=== PATIENT | male | born 1990 | race Caucasian/White ===

== ENCOUNTER 2016-09-13 10:31 | Emergency (ER) | payer SELFPAY ==
[2016-09-13 10:42] VITALS: TEMP 98; BMI 26.6
--- NOTE | 2016-09-13 11:51 | PDOC ---
History of Present Illness - General Chief Complaint: Pain Stated Complaint: ABD PAIN Time Seen by Provider: 09/13/16 10:53 - History of Present Illness Initial Comments: 09/13/16 11:46 CHIEF COMPLAINT: abdominal pain x 4 days HISTORY OF PRESENT ILLNESS: 25 yo M with no PMH presents to fast track with upper abdominal pain x 4 days. Patient states "it feels like a cramping" pain, and it comes and goes. Patient states he has also had intermittent diarrhea on and off x 4 days. Patient reports "some nausea" but denies any vomiting. Patient denies constipation or rectal bleeding. PAST MEDICAL HISTORY: Denies past medical history FAMILY HISTORY: Denies SOCIAL HISTORY: Denies tobacco, alcohol, illicit drug use. SURGICAL HISTORY: Denies ALLERGIES: NKDA REVIEW OF SYSTEMS General/Constitutional: Denies fever or chills. Denies weakness. HEENT: Denies change in vision. Denies ear pain or discharge. Denies sore throat. Cardiovascular: Denies chest pain or shortness of breath. Respiratory: Denies cough, wheezing, or hemoptysis. Gastrointestinal: "Sometimes diarrhea, sometimes nausea." Denies vomiting. Genitourinary: Denies dysuria, frequency, or change in urination. PHYSICAL EXAM General Appearance: Well-appearing, appropriately dressed. HEENT: EOMI, PERRLA. No conjunctival pallor. No photophobia, scleral icterus. Respiratory/Chest: Lungs CTAB. Cardiovascular: RRR. S1, S2. Gastrointestinal/Abdominal: Generalized abdominal tenderness. Abdomen soft, non -distended. No organomegaly, pulsatile mass, guarding, hernia, hepatomegaly, splenomegaly. Musculoskeletal/Extremities: Normal inspection. FROM of all extremities, normal capillary refill. Pelvis Stable. No CVA tenderness. No tenderness to extremities, pedal edema, swelling, erythema or deformity. Integumentary: Appropriate color, dry, warm. 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 Fully oriented, alert. Appropriate mood/affect. Motor strength 5/5. No appreciable EOM palsy, facial droop or sensory deficit. Past History - Past Medical History Allergies/Adverse Reactions: Allergies Allergy/AdvReac Type Severity Reaction Status Date / Time No Known Allergies Allergy Verified 09/13/16 10:42 Home Medications: Ambulatory Orders Loperamide HCl [Loperamide] 2 mg PO Q4H PRN #20 capsule 09/13/16 Other medical history: denies - Psycho/Social/Smoking Cessation Hx Suicidal Ideation: No Smoking History: Never smoked Information on smoking cessation initiated: No Hx Alcohol Use: No Drug/Substance Use Hx: No Substance Use Type: None *Physical Exam - Vital Signs Last Vital Signs Temp Pulse Resp BP Pulse Ox 98 F 60 18 128/55 98 09/13/16 10:40 09/13/16 10:40 09/13/16 10:40 09/13/16 10:40 09/13/16 10:40 ED Treatment Course - LABORATORY CBC & Chemistry Diagram: 09/13/16 12:30 09/13/16 13:00 Medical Decision Making - Medical Decision Making 09/13/16 13:48 25 yo M with no PMH presents to fast track with upper abdominal pain & diarrhea x 4 days. -CBC, CMP, lipase -UA, Ucx -Pepcid, Protonix Labs unremarkable. Will discharge home with loperamide rx. Advised patient to take medications as prescribed and f/u with PCP this week. Advised patient of signs and symptoms for return to ER; patient verbalized understanding and agrees to plan. *DC/Admit/Observation/Transfer Diagnosis at time of Disposition: Diarrhea Qualifiers: Diarrhea type: unspecified type Qualified Code(s): R19.7 - Diarrhea, unspecified Abdominal pain Qualifiers: Abdominal location: generalized Qualified Code(s): R10.84 - Generalized abdominal pain - Discharge Dispostion Disposition: HOME Condition at time of disposition: Stable Admit: No - Prescriptions Prescriptions: Loperamide HCl [Loperamide] 2 mg PO Q4H PRN #20 capsule PRN Reason: Diarrhea - Referrals Referrals: Walter Farrsi MD [Staff Physician] - - Patient Instructions Printed Discharge Instructions: DI for Diarrhea and Traveler's Diarrhea -- Adult Additional Instructions: Please take medication as prescribed. Follow up with your primary care doctor this week if symptoms persist. If you develop fever, vomiting, rectal bleeding , or any new or worsening symptoms, please return to the ER. Por favor, tome la medicacin segn lo prescrito. Siga con ferguson mdico de atenci n primaria esta semana si los sntomas persisten. Si usted desarrolla fiebre, v mitos, sangrado rectal o cualquier sntoma nuevo o que empeora, por favor regrese a la sherlyn de emergencias.
[2016-09-13] MEDS ORDERED: PANTOPRAZOLE SODIUM 40 MG in SODIUM CHLORIDE 100 ML IVPB ONE (12:20)
[2016-09-13] MEDS ORDERED: FAMOTIDINE 20 MG/50 ML IVPB 50 ML IVPB ONE ×2 (12:20→12:32)
[2016-09-13] MEDS ORDERED: PANTOPRAZOLE SODIUM 100 ML IVPB ONE (12:32)
[2016-09-13 12:41] LABS: BASOPHIL 0.3 % (0-2.0); EOSINOPHIL 2.8 % (0-4.5); MCH 31.6 pg (25.7-33.7); MCHC 34.7 g/dl (32.0-35.9); MEAN CELL VOLUME 91.3 fl (80-96); MEAN PLT VOLUME 8.3 fl (7.5-11.1); NEUTROPHILS 64.6 % (42.8-82.8); PLATELET COUNT 212 K/MM3 (134-434); RDW 12.7 % (11.9-15.9); WHITE BLOOD COUNT 6.3 K/mm3 (4.0-10.0)
[2016-09-13 12:53] LABS: URINE APPEARANCE CLEAR; URINE BILIRUBIN NEGATIVE (NEGATIVE); URINE BLOOD NEGATIVE (NEGATIVE); URINE COLOR YELLOW; URINE GLUCOSE (UA) NEGATIVE (NEGATIVE); URINE KETONE NEGATIVE (NEGATIVE); URINE LEUK ESTERASE NEGATIVE (NEGATIVE); URINE NITRITE NEGATIVE (NEGATIVE); URINE PROTEIN NEGATIVE (NEGATIVE); URINE UROBILINOGEN NEGATIVE mg/dL (0.2-1.0)
[2016-09-13 13:21] LABS: ALBUMIN 3.7 g/dl (3.4-5.0); ANION GAP 7 (8-16); BILIRUBIN,TOTAL 0.4 mg/dL (0.2-1.0); CALCIUM 8.2 mg/dL (8.5-10.1); CO2 26 mmol/L (21-32); CREATININE 0.8 mg/dL (0.7-1.3); GLUCOSE,RANDOM 88 mg/dL (74-106); SGOT/AST 22 U/L (15-37); SGPT/ALT 32 U/L (12-78); TOT PROT 6.5 g/dl (6.4-8.2)
[2016-09-13 13:24] LABS: ALK PHOS 67 U/L (45-117)
--- NOTE | 2016-09-13 14:37 | PDOC ---
*Physical Exam - Vital Signs Last Vital Signs Temp Pulse Resp BP Pulse Ox 98 F 60 18 128/55 98 09/13/16 10:40 09/13/16 10:40 09/13/16 10:40 09/13/16 10:40 09/13/16 10:40 - Physical Exam General Appearance: Yes: Nourished, Appropriately Dressed Neck: positive: Trachea midline Respiratory/Chest: positive: Lungs Clear, Normal Breath Sounds. negative: Respiratory Distress Cardiovascular: positive: Regular Rhythm, Regular Rate, S1, S2. negative: Edema , JVD Gastrointestinal/Abdominal: positive: Normal Bowel Sounds, Flat, Soft. negative : Tender Extremity: positive: Normal Inspection Integumentary: positive: Normal Color, Warm Neurologic: positive: Fully Oriented, Alert, Normal Mood/Affect ED Treatment Course - LABORATORY CBC & Chemistry Diagram: 09/13/16 12:30 09/13/16 13:00 - ADDITIONAL ORDERS Additional order review: Laboratory Results 09/13/16 09/13/16 13:00 12:37 Sodium 140 Potassium 3.8 Chloride 107 Carbon Dioxide 26 Anion Gap 7 L BUN 10 Creatinine 0.8 Creat Clearance w eGFR > 60 Random Glucose 88 Calcium 8.2 L Total Bilirubin 0.4 AST 22 ALT 32 Alkaline Phosphatase 67 Total Protein 6.5 Albumin 3.7 Lipase 127 Urine Color Yellow Urine Appearance Clear Urine pH 5.0 Urine Protein Negative Urine Glucose (UA) Negative Urine Ketones Negative Urine Blood Negative Urine Nitrite Negative Urine Bilirubin Negative Urine Urobilinogen Negative Ur Leukocyte Esterase Negative 09/13/16 12:30 RBC 4.58 MCV 91.3 MCHC 34.7 RDW 12.7 MPV 8.3 Neutrophils % 64.6 Lymphocytes % 23.3 Monocytes % 9.0 Eosinophils % 2.8 Basophils % 0.3 - Medications Given in the ED: ED Medications Discontinued Medications Generic Name Dose Route Start Last Admin Trade Name Freq PRN Reason Stop Dose Admin Pantoprazole Sodium 40 mg/ 100 mls @ 200 mls/hr 09/13/16 12:20 09/13/16 12:31 Sodium Chloride IVPB 09/13/16 12:49 200 mls/hr ONCE ONE Administration Famotidine/Sodium Chloride 50 mls @ 100 mls/hr 09/13/16 12:20 09/13/16 12:30 Pepcid 20 Mg Premixed Ivpb - IVPB 09/13/16 12:49 100 mls/hr ONCE ONE Administration Medical Decision Making - Medical Decision Making 09/13/16 14:35 25 yo M with no pmhx here wtih c/o epigastric pain. no n/v no diarrhea, no f/c no recent travel. no mod factors. 09/13/16 14:42 focused ED ultrasound RUQ,. indication: epigastric pain finding: pt gallbladder scanned in two planes in b mode with curvilinear probe. no stones no wall edema. no wall thickening. no pericholecystic fluid, negative sonographic murphys wall 1.2mm CBD 1mm impression: normal gallbladder cirilli plan : pt improved wtih antacid, will dc with outpt GI followup. *DC/Admit/Observation/Transfer Diagnosis at time of Disposition: Diarrhea Qualifiers: Diarrhea type: unspecified type Qualified Code(s): R19.7 - Diarrhea, unspecified Abdominal pain Qualifiers: Abdominal location: generalized Qualified Code(s): R10.84 - Generalized abdominal pain - Discharge Dispostion Disposition: HOME Condition at time of disposition: Stable - Prescriptions Prescriptions: Loperamide HCl [Loperamide] 2 mg PO Q4H PRN #20 capsule PRN Reason: Diarrhea - Referrals Referrals: Walter Farris MD [Staff Physician] - - Patient Instructions Printed Discharge Instructions: DI for Diarrhea and Traveler's Diarrhea -- Adult Additional Instructions: Please take medication as prescribed. Follow up with your primary care doctor this week if symptoms persist. If you develop fever, vomiting, rectal bleeding , or any new or worsening symptoms, please return to the ER. Por favor, tome la medicacin segn lo prescrito. Siga con ferguson mdico de atenci n primaria esta semana si los sntomas persisten. Si usted desarrolla fiebre, v mitos, sangrado rectal o cualquier sntoma nuevo o que empeora, por favor regrese a la sherlyn de emergencias. - Post Discharge Activity
[2016-09-13 15:49] VITALS: BP 120/54; PULSE 85
== END 2016-09-13 15:50 | disposition home or self-care (01) ==
LOC: JER 10:31
PROC: 3E033GC Introduction of Other Therapeutic Substance into Peripheral Vein, Percutaneous Approach (ICD-10-PCS; principal; 2016-09-13)
DX: R10.84 Generalized abdominal pain (principal); R19.7 Diarrhea, unspecified
CPT/HCPCS: 36415; 80053; 81003; 83690; 85025; 87086; 99284-25